=== PATIENT | male | born 1995 | race Caucasian/White ===

== ENCOUNTER 2019-05-13 23:23 | Emergency (ER) | payer OTHER ==
[~2019-05-13] VITALS: Ht 182.9 cm; Wt 99.8 kg
--- NOTE | 2019-05-13 23:55 | NUR ---
ED Nurse Note: PT WALKED IN C/O COUGHING, FEVER, WHEEZING X4 DAYS. PT STATES HE TOOK TYLENOL 1000MG AT 7PM. TEMP AT 102 IN TRIAGE. PT DENIES N/V/D. PATIENT ON MONITOR, NAD, VSS, ERMD AT BEDSIDE. WILL CONTINUE TO MONITOR PATIENT.
[2019-05-14] VITALS: BP 134/66
[2019-05-14] MEDS ORDERED: Ketorolac 30mg Inj IV ONE (00:15)
[2019-05-14] MEDS ORDERED: Ketorolac 30mg Inj ONE (00:23)
--- NOTE | 2019-05-14 00:29 | NUR ---
ED Nurse Note: CXR AT BEDSIDE
--- NOTE | 2019-05-14 00:30 | NUR ---
ED Nurse Note: FAMILY AT BEDSIDE.
[2019-05-14 00:39] LABS: BASOPHILS % (AUTO) 1.4 % (0.0-2.0); EOSINOPHILS % (AUTO) 0.8 % (0.0-3.0); HEMATOCRIT 52.9 % (42.0-52.0); LYMPHOCYTES % (AUTO) 17.4 % (20.0-45.0); MEAN CORPUSCULAR VOLUME 87 FL (80-99); MONOCYTES % (AUTO) 15.1 % (1.0-10.0); NEUTROPHILS % (AUTO) 65.3 % (45.0-75.0); PLATELET COUNT 193 K/UL (150-450); RED BLOOD COUNT 6.08 M/UL (4.70-6.10); RED CELL DISTRIBUTION WIDTH 10.5 % (11.6-14.8); WHITE BLOOD COUNT 4.8 K/UL (4.8-10.8)
[2019-05-14 00:41] LABS: HEMOGLOBIN 18.2 G/DL (14.2-18.0)
[2019-05-14 00:49] LABS: ANION GAP 9 mmol/L (5-15); BLOOD UREA NITROGEN 10 mg/dL (7-18); CALCIUM 9.7 MG/DL (8.5-10.1); CARBON DIOXIDE 30 MMOL/L (21-32); CHLORIDE 99 MMOL/L (98-107); CREATININE 1.4 MG/DL (0.55-1.30); POTASSIUM 3.3 MMOL/L (3.5-5.1); SODIUM 137 MMOL/L (136-145)
--- NOTE | 2019-05-14 01:07 | Emergency Room Report ---
History of Present Illness General Chief Complaint: Flu Like Symptoms Source: Patient Present Illness HPI Disclaimer: Please note that this report is being documented using [employer] technology. This can lead to erroneous entry secondary to incorrect interpretation by the dictating instrument. HPI: 23-year-old otherwise healthy male with no reported medical presents for evaluation of sore throat cough and fevers. Symptoms present 4 to 5 days. He noted to begin with a sore throat and subjective fevers at home. Treating with Tylenol and Motrin. Drinking plenty of fluids. Making adequate urine. Reports a nonproductive cough. Denies abdominal pain, nausea or vomiting. Denies diarrhea. Denies rash. Notes intermittent headaches. Did not receive a flu shot this year. PMH: Denies PSH: Denies Allergies: Denies Social Hx: Denies tobacco use Allergies: Coded Allergies: No Known Allergies (Unverified , 05/13/19) Nursing Documentation-PMH Past Medical History: No Stated History Review of Systems All Other Systems: negative except mentioned in HPI Physical Exam Vital Signs Date Time Temp Pulse Resp B/P (MAP) Pulse Ox O2 Delivery O2 Flow Rate FiO2 05/13/19 23:49 102.0 104 18 146/72 (96) 98 Room Air General: Awake and alert, febrile, appears comfortable and in no acute distress HEENT: NC/AT. EOMI. Cardiovascular: Borderline tachycardia. S1 and S2 normal. No murmur appreciated Resp: Normal work of breathing. No cough, wheezing or crackles appreciated Abdomen: Abdomen is soft, nondistended. Nontender Skin: Intact. No abrasions, laceration or rash over the exposed skin MSK: Normal tone and bulk. Moving all extremities. No obvious deformity. Neuro: Awake and alert. Mentating appropriately. Medical Decision Making Diagnostic Impression: Primary Impression: Influenza B Additional Impression: Dehydration ER Course 23-year-old male presents with 4 to 5 days of URI symptoms, cough and fever. Differential includes but not limited to viral syndrome, influenza, pharyngitis , pneumonia. Labs and chest x-ray were ordered on arrival. Patient is tested positive for influenza B. He is out of the treatment window for Tamiflu. He is febrile and will be given antipyretics. Labs show hemoconcentration and a slight elevation in creatinine consistent with dehydration. We will give 2 L IV fluids. He is otherwise feeling well. Chest x-ray shows no evidence of pneumonia. Patient will be treated symptomatically as an outpatient. We will follow-up with PMD. Discussed reasons to return to the emergency department. He understands and agrees with the treatment plan. Laboratory Tests Test 05/14/19 00:19 White Blood Count 4.8 K/UL (4.8-10.8) Red Blood Count 6.08 M/UL (4.70-6.10) Hemoglobin 18.2 G/DL (14.2-18.0) *H Hematocrit 52.9 % (42.0-52.0) H Mean Corpuscular Volume 87 FL (80-99) Mean Corpuscular Hemoglobin 29.9 PG (27.0-31.0) Mean Corpuscular Hemoglobin Concent 34.4 G/DL (32.0-36.0) Red Cell Distribution Width 10.5 % (11.6-14.8) L Platelet Count 193 K/UL (150-450) Mean Platelet Volume 6.7 FL (6.5-10.1) Neutrophils (%) (Auto) 65.3 % (45.0-75.0) Lymphocytes (%) (Auto) 17.4 % (20.0-45.0) L Monocytes (%) (Auto) 15.1 % (1.0-10.0) H Eosinophils (%) (Auto) 0.8 % (0.0-3.0) Basophils (%) (Auto) 1.4 % (0.0-2.0) Sodium Level 137 MMOL/L (136-145) Potassium Level 3.3 MMOL/L (3.5-5.1) L Chloride Level 99 MMOL/L (98-107) Carbon Dioxide Level 30 MMOL/L (21-32) Anion Gap 9 mmol/L (5-15) Blood Urea Nitrogen 10 mg/dL (7-18) Creatinine 1.4 MG/DL (0.55-1.30) H Estimate Glomerular Filtration Rate > 60 mL/min (>60) Glucose Level 112 MG/DL (74-106) H Calcium Level 9.7 MG/DL (8.5-10.1) Microbiology Date/Time Source Procedure Growth Status 05/13/19 23:59 Nasal Nares - Final Complete 05/13/19 23:59 Nasal Nares - Final Complete Chest X-Ray Diagnostic Results Chest X-Ray Diagnostic Results : Chest X-Ray Ordered: Yes # of Views/Limited/Complete: 1 View Indication: Shortness of Breath EP Interpretation: Yes Interpretation: no consolidation, no effusion, no pneumothorax, no acute cardiopulmonary disease Impression: No acute disease Electronically Signed by: Electronically signed by Dr. Fritz Patel Last Vital Signs Date Time Temp Pulse Resp B/P (MAP) Pulse Ox O2 Delivery O2 Flow Rate FiO2 05/14/19 00:00 102.0 88 18 134/66 98 Room Air Disposition: HOME, SELF-CARE Condition: Stable Scripts Ondansetron Odt* (ZOFRAN ODT*) 4 Mg Tab.rapdis 4 MG BC EVERY 6 HOURS PRN for Nausea & Vomiting, #20 TAB 0 Refills Prov: Fritz Patel MD 05/14/19 Referrals: [facility],REFERRING (PCP) Fritz Patel MD May 14, 2019 01:07
[2019-05-14 02:00] VITALS: BP 122/71
[2019-05-14] MEDS ORDERED: ONDANSETRON ODT4 MG BC (02:44)
[2019-05-14 02:55] VITALS: BP 122/71
--- NOTE | 2019-05-14 02:55 | NUR ---
ER DISCHARGE NOTE: Patient is cleared to be discharged per ERMD, pt is aox4, on room air, with stable vital signs. pt was given dc and prescription instructions, pt was able to verbalize understanding, pt id band and iv site removed without complications. pt is able to ambulate with steady gait. pt took all belongings accompanied by family
--- NOTE | 2019-05-14 13:03 | Diagnostic Imaging Report ---
Indication: Reason For Exam: COUGH Technique: One view of the chest Comparison: none Findings: Lungs and pleural spaces are clear. Heart size is normal. Impression: No acute process
== END 2019-05-14 02:55 | disposition home or self-care (01) ==
LOC: EMR 05-14 00:30
DX: J11.1 Influenza due to unidentified influenza virus with other respiratory manifestations (principal); E86.0 Dehydration
CPT/HCPCS: 36415; 71045; 80048; 85025; 86710; 96361; 96374; 99284; J1885; J7030